=== PATIENT | female | born 1990 | race Two or more races ===

== ENCOUNTER 2021-01-27 16:19 | Inpatient (IN) | payer OTHER ==
[~2021-01-27] VITALS: Ht 160 cm; Wt 69.1 kg
[2021-01-27 16:34] VITALS: BP 124/92
[2021-01-27] MEDS ORDERED: PREN1TAB60 PO (17:31)
[2021-01-27] MEDS: LACTATED RINGERS 1,000 ML IV SCH (17:51)
[2021-01-27] MEDS ORDERED: OXYTOCIN 30U/ 0.9% NaCL 500ML 500 ML IV ONE (18:00)
[2021-01-27] MEDS ORDERED: CALCIUM CARBONATE 500 MG TAB.CHEW PO PRN (18:00)
[2021-01-27] MEDS ORDERED: TERBUTALINE 1 MG/ML, 1ML SQ PRN (18:00)
[2021-01-27] MEDS ORDERED: FENTANYL PF 100 MCG/2ML IVPush PRN (18:00)
[2021-01-27] MEDS ORDERED: TERBUTALINE 1 MG/ML, 1ML IVPush PRN (18:00)
[2021-01-27] MEDS ORDERED: D5%-LACTATED RINGERS 1,000 ML IV SCH (18:00)
[2021-01-27] MEDS ORDERED: ONDANSETRON 2MG/ML, 2ML IVPush PRN ×2 (18:00→21:00)
[2021-01-27] MEDS ORDERED: OXYTOCIN 30U/ 0.9% NaCL 500ML 500 ML IV PRN ×2 (18:00→19:30)
[2021-01-27 18:09] LABS: BASOPHILS % (AUTO) 0 % (0-1); EOSINOPHILS % (AUTO) 0 % (1-7); LYMPHOCYTES % (AUTO) 26 % (22-44); MEAN CORPUSCULAR HEMOGLOBIN 27.3 pg (27.0-34.8); MEAN CORPUSCULAR HGB CONC 32.4 g/dL (32.4-35.8); MEAN PLATELET VOLUME 10.8 fL (7.4-10.4); MONOCYTES % (AUTO) 10 % (2-9); NEUTROPHILS % (AUTO) 63 % (42-75); PLATELET COUNT 248 x10^3/uL (130-400); RED CELL DISTRIBUTION WIDTH 17.1 % (9.6-15.2)
[2021-01-27] MEDS ORDERED: NEWBORN KIT ONE (18:21)
[2021-01-27] MEDS ORDERED: FENTANYL/BUPIV./NS/PF 250 ML EPIDCONT ONE (20:30)
[2021-01-27] MEDS ORDERED: BUPIVACAINE 0.25% ONE (20:30)
[2021-01-27] MEDS ORDERED: LACTATED RINGERS 1,000 ML IVBOLUS PRN (21:00)
[2021-01-27] MEDS ORDERED: NALOXONE 0.4 MG/ML, 1ML IVPush PRN (21:00)
[2021-01-27] MEDS ORDERED: EPHEDRINE 50 MG/ML, 1ML IVPush PRN (21:00)
[2021-01-27] MEDS ORDERED: DIPHENHYDRAMINE 50 MG/ML, 1ML IVPush PRN (21:00)
[2021-01-27] MEDS ORDERED: LACTATED RINGERS 1,000 ML IV SCH (21:00)
[2021-01-27] MEDS ORDERED: FENTANYL/BUPIV./NS/PF 250 ML EPIDCONT SCH (21:00)
[2021-01-28] MEDS: LACTATED RINGERS 1,000 ML IV SCH ×3 (02:00→18:00)
[2021-01-28] MEDS ORDERED: ACETAMINOPHEN 325 MG TABLET PO PRN (02:30)
[2021-01-28] MEDS ORDERED: DOCUSATE 100 MG CAPSULE PO PRN (02:30)
[2021-01-28] MEDS ORDERED: OXYcodone/APAP 5/325MG TABLET PO PRN ×2 (02:30)
[2021-01-28] MEDS ORDERED: ONDANSETRON 2MG/ML, 2ML IV PRN (02:30)
[2021-01-28] MEDS ORDERED: SIMETHICONE 80 MG CHEW TAB PO PRN (02:30)
[2021-01-28] MEDS ORDERED: MISOPROSTOL 200 MCG TABLET PR PRN (02:30)
[2021-01-28] MEDS: OXYTOCIN 30U/ 0.9% NaCL 500ML 500 ML IV SCH ×2 (02:30→12:30)
[2021-01-28 04:32] VITALS: BP 104/64
[2021-01-28 07:30] VITALS: BP 116/70
[2021-01-28] MEDS: PRENATAL VIT/IRON/FA 1 EACH TABLET PO SCH (08:05)
[2021-01-28 14:04] VITALS: BP 124/69
[2021-01-28 15:05] VITALS: BP 119/81
[2021-01-28 15:49] LABS: BASOPHILS % (AUTO) 0 % (0-1); EOSINOPHILS % (AUTO) 0 % (1-7); LYMPHOCYTES % (AUTO) 19 % (22-44); MEAN CORPUSCULAR HEMOGLOBIN 27.1 pg (27.0-34.8); MEAN CORPUSCULAR HGB CONC 32.2 g/dL (32.4-35.8); MONOCYTES % (AUTO) 8 % (2-9); NEUTROPHILS % (AUTO) 73 % (42-75); PLATELET COUNT 216 x10^3/uL (130-400); RED CELL DISTRIBUTION WIDTH 16.7 % (9.6-15.2)
[2021-01-28] MEDS: IBUPROFEN 800 MG TABLET PO PRN (20:06)
[2021-01-28 21:00] VITALS: BP 114/71
[2021-01-29] VITALS: BP 122/78
[2021-01-29] MEDS: IBUPROFEN 800 MG TABLET PO PRN ×2 (04:22→12:26)
[2021-01-29] MEDS ORDERED: IBUP-1223 PO (07:29)
[2021-01-29] MEDS ORDERED: DOCU-131 PO (07:29)
[2021-01-29] MEDS: PRENATAL VIT/IRON/FA 1 EACH TABLET PO SCH (07:44)
[2021-01-29 08:00] VITALS: BP 132/86
== END 2021-01-29 16:00 | disposition home or self-care (01) | DRG 807 ==
LOC: LDOP 16:19 → LDIP 17:32 → 2NW 01-28 15:30
PROVIDERS: ADMIT Obstetrics & Gynecology Maternal & Fetal Medicine; ATTEND Obstetrics & Gynecology Maternal & Fetal Medicine
PROC: 10E0XZZ Delivery of Products of Conception, External Approach (ICD-10-PCS; principal; 2021-01-28)
PROC: 0KQM0ZZ Repair Perineum Muscle, Open Approach (ICD-10-PCS; 2021-01-28)
PROC: 3E0R3BZ Introduction of Anesthetic Agent into Spinal Canal, Percutaneous Approach (ICD-10-PCS; 2021-01-28)
PROC: 00HU33Z Insertion of Infusion Device into Spinal Canal, Percutaneous Approach (ICD-10-PCS; 2021-01-28)
PROC: 3E033VJ Introduction of Other Hormone into Peripheral Vein, Percutaneous Approach (ICD-10-PCS; 2021-01-28)
DX: O70.1 Second degree perineal laceration during delivery (principal); Z37.0 Single live birth; Z3A.40 40 weeks gestation of pregnancy; Z20.822 Contact with and (suspected) exposure to COVID-19
CPT/HCPCS: 36415; 85025; 86592; 86850; 86900; 87635; 89060; G0378; J2590; J3010; J7120; Q0114